=== PATIENT | male | born 1955 | race Caucasian/White ===

== ENCOUNTER 2017-12-10 19:11 | Emergency (ER) | payer MEDICARE, OTHER ==
[~2017-12-10] VITALS: Ht 172.7 cm; Wt 72.6 kg
[~2017-12-10 19:11] MED LIST: BUDE10.22; CHOL10002; DIVA250ER; DIVA500EC; FURO20; Inderal 20 mg T20 MG; LORA2; QUET100; QUET300
== END 2017-12-10 20:33 | disposition home or self-care (01) ==
LOC: ER 19:11
DX: S01.01XA Laceration without foreign body of scalp, initial encounter (principal); Y04.8XXA Assault by other bodily force, initial encounter; Z79.899 Other long term (current) drug therapy; F03.90 Unspecified dementia, unspecified severity, without behavioral disturbance, psychotic disturbance, mood disturbance, and anxiety
CPT/HCPCS: 12031; 99283

== ENCOUNTER → 2017-12-24 | Outpatient (CLI) | payer MEDICARE, OTHER ==
[2017-12-24 19:00] LABS: U Amphetamine Screen Not Detected; U Barbituate Screen Not Detected; U Benzodiazapine Screen DETECTED; U Buprenorphine Screen Not Detected; U Cannabinoids Screen Not Detected; U Cocaine Screen Not Detected; U Methadone Screen Not Detected; U Methamphetamine Screen Not Detected; U Opiates Screen Not Detected; U Oxycodone Screen Not Detected; U Phencyclidine Screen Not Detected; U Propoxyphene Screen Not Detected
== END ==
LOC: LAB SRC 13:41 → LAB SHORT 13:41
PROVIDERS: Nurse Practitioner Family
DX: Z51.81 Encounter for therapeutic drug level monitoring (principal); Z79.899 Other long term (current) drug therapy

== ENCOUNTER → 2019-04-04 | Outpatient (CLI) | payer MEDICARE, OTHER ==
[~2019-04-04] MED LIST changes: -CHOL10002; -DIVA250ER; -DIVA500EC; +DIVA500EC PO; +Fish Oil 10001000 MG PO; -Inderal 20 mg T20 MG; +Inderal 20 mg T20 MG PO; +LEVOFLOXACIN750 MG PO; -LORA2; +LORA2 PO; +OLAN5A PO; +ONE DAILY COMP1 EACH PO; -QUET100; +QUET100 PO; -QUET300; +QUET300 PO; +TRELEGY ELLIPT1 EACH INH; +VITAMIN D31000 UNIT PO; +Vsl#3 Capsule1 EACH PO
== END | disposition home or self-care (01) ==
LOC: LAB SRC 13:30 → LAB SHORT 13:30
DX: R73.9 Hyperglycemia, unspecified (principal)
CPT/HCPCS: 82043

== ENCOUNTER 2019-04-12 09:24 | Inpatient (IN) | payer MEDICARE, OTHER ==
[~2019-04-12] VITALS: Ht 177.8 cm; Wt 89.7 kg
[~2019-04-12 09:24] MED LIST changes: -DIVA500EC PO; -Fish Oil 10001000 MG PO; -Inderal 20 mg T20 MG PO; -LEVOFLOXACIN750 MG PO; -LORA2 PO; -OLAN5A PO; -ONE DAILY COMP1 EACH PO; -QUET100 PO; -QUET300 PO; -TRELEGY ELLIPT1 EACH INH; -VITAMIN D31000 UNIT PO; -Vsl#3 Capsule1 EACH PO
[2019-04-12 09:46] LABS: BASOPHILS ABSOLUTE AUTO 0.05 K/mm3 (0.00-0.23); BASOPHILS PERCENT AUTO 0 % (0-2); EOSINOPHILS ABSOLUTE AUTO 0.02 K/mm3 (0.00-0.68); EOSINOPHILS PERCENT AUTO 0 % (0-6); Hematocrit 40.4 % (37.0-53.0); Hemoglobin 13.7 g/dL (13.5-17.5); IMMATURE GRAN PERCENT AUTO 1 % (0-1); LYMPHOCYTES ABSOLUTE AUTO 2.04 K/mm3 (0.84-5.20); LYMPHOCYTES PERCENT AUTO 10 % (21-46); MONOCYTES ABSOLUTE AUTO 2.42 K/mm3 (0.16-1.47); MONOCYTES PERCENT AUTO 12 % (4-13); Mean Corpuscular HGB Conc 33.9 g/dL (31.5-36.5); Mean Corpuscular Volume 94 fL (80-100); Mean Platelet Volume 10.4 fL (9.1-12.4); NEUTROPHILS ABSOLUTE AUTO 16.05 K/mm3 (1.96-9.15); NEUTROPHILS PERCENT AUTO 77 % (41-73); Platelet Count 155 K/mm3 (150-400); RDW Coefficient Variation 12.7 % (11.7-14.2); RDW Standard Deviation 43.9 fL (35.1-46.3); Red Blood Cell Count 4.28 M/mm3 (4.30-5.90); White Blood Cell Count 20.78 K/mm3 (4.00-11.30)
[2019-04-12 10:00] LABS: Alanine Aminotransfer (ALT/SGP 25 U/L (12-78); Albumin, Blood 3.4 g/dL (3.4-5.0); Alk Phos 59 U/L (50-136); Anion Gap 12 mmol/L (6-16); Aspartate Aminotrans (AST/SGOT 25 U/L (12-37); Bilirubin, Total 1.2 mg/dL (0.1-1.0); Blood Urea Nitrogen 34 mg/dL (8-24); Bun/Creatinine Ratio 32.1 (12.0-20.0); CO2, Blood 25 mmol/L (21-32); Calcium, Blood 8.7 mg/dL (8.5-10.1); Chloride, Blood 103 mmol/L (98-108); Creatinine, Blood 1.06 mg/dL (0.60-1.20); Globulin, Blood 3.5 g/dL (2.2-4.0); Glomerular Filtration Rate >60 (60-); Glucose, Blood 131 mg/dL (70-99); Potassium, Blood 4.4 mmol/L (3.5-5.5); Sodium, Blood 140 mmol/L (136-145); Total Protein, Blood 6.9 g/dL (6.4-8.2)
[2019-04-12 11:01] LABS: Source, Urine Clean Catch
[2019-04-12 11:05] LABS: Bilirubin, Urine Neg (Neg); Blood, Urine 5+ (Neg); Glucose Qualitative, Urine Neg (Neg); Ketones, Urine 2+ (Neg); Leukocyte Esterase, Urine 3+ (Neg); Nitrite, Urine Neg (Neg); Protein, Urine 3+ (Neg); Urobilinogen, Urine 1+ (Normal)
[2019-04-12 11:15] LABS: Appearance, Urine Bloody (Clear); Color, Urine Red (P-Yellow)
[2019-04-12 11:17] LABS: Bacteria Rare /hpf; Red Blood Cells, Urine TNTC /hpf (0-2); Squamous Epithelial Cells Rare /hpf (Few)
[2019-04-12] MEDS ORDERED: DIVA500EC PO ×2 (11:56→11:59)
[2019-04-12] MEDS ORDERED: Inderal 20 mg T20 MG PO (11:57)
[2019-04-12] MEDS ORDERED: OLAN5A PO (11:57)
[2019-04-12] MEDS ORDERED: QUET300 PO (11:57)
[2019-04-12] MEDS ORDERED: VITAMIN D31000 UNIT PO (12:00)
[2019-04-12] MEDS ORDERED: LORA2 PO (12:11)
[2019-04-12] MEDS ORDERED: QUET100 PO (12:11)
[2019-04-12] MEDS ORDERED: Fish Oil 10001000 MG PO (12:12)
[2019-04-12] MEDS ORDERED: ONE DAILY COMP1 EACH PO (12:13)
--- NOTE | 2019-04-12 14:31 | NUR ---
PT ADMITTED PT ADMITTED AT 1350. PT IN STABLE CONDITION WITH VSS. ALARM SET & CALL LIGHT GIVEN TO PT. NEW IV PLACED. PT PULLED PREVIOUS IV. WILL CONTINUE TO MONITOR.
--- NOTE | 2019-04-12 17:49 | NUR ---
SHIFT SUMMARY NO CHANGES IN ASSESSMENT AT THIS TIME. VSS. PT CAREGIVER TO BRING IN ADVANCED DIRECTIVE TOMORROW. PT RESTING IN BED. CALL LIGHT IN REACH. BED ALARMED. WILL CONTINUE TO MONITOR UNIL TURNOVER IS COMPLETE.
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
[2019-04-13 05:38] LABS: BASOPHILS ABSOLUTE AUTO 0.04 K/mm3 (0.00-0.23); BASOPHILS PERCENT AUTO 0 % (0-2); EOSINOPHILS ABSOLUTE AUTO 0.04 K/mm3 (0.00-0.68); EOSINOPHILS PERCENT AUTO 0 % (0-6); Hematocrit 33.3 % (37.0-53.0); Hemoglobin 11.2 g/dL (13.5-17.5); IMMATURE GRAN PERCENT AUTO 1 % (0-1); LYMPHOCYTES ABSOLUTE AUTO 3.19 K/mm3 (0.84-5.20); LYMPHOCYTES PERCENT AUTO 18 % (21-46); MONOCYTES ABSOLUTE AUTO 2.13 K/mm3 (0.16-1.47); MONOCYTES PERCENT AUTO 12 % (4-13); Mean Corpuscular HGB 31.6 pg (26.0-34.0); Mean Corpuscular HGB Conc 33.6 g/dL (31.5-36.5); Mean Corpuscular Volume 94 fL (80-100); Mean Platelet Volume 10.7 fL (9.1-12.4); NEUTROPHILS ABSOLUTE AUTO 11.99 K/mm3 (1.96-9.15); NEUTROPHILS PERCENT AUTO 68 % (41-73); Platelet Count 121 K/mm3 (150-400); RDW Coefficient Variation 12.7 % (11.7-14.2); RDW Standard Deviation 43.8 fL (35.1-46.3); Red Blood Cell Count 3.54 M/mm3 (4.30-5.90); White Blood Cell Count 17.59 K/mm3 (4.00-11.30)
[2019-04-13 05:58] LABS: Albumin, Blood 2.6 g/dL (3.4-5.0); Anion Gap 7 mmol/L (6-16); Blood Urea Nitrogen 25 mg/dL (8-24); Bun/Creatinine Ratio 28.2 (12.0-20.0); CO2, Blood 27 mmol/L (21-32); CPK Creatine Kinase 113 U/L (39-308); Calcium, Blood 7.8 mg/dL (8.5-10.1); Chloride, Blood 108 mmol/L (98-108); Creatinine, Blood 0.89 mg/dL (0.60-1.20); Glomerular Filtration Rate >60 (60-); Glucose, Blood 94 mg/dL (70-99); Phosphorus, Blood 2.3 mg/dL (2.5-4.9); Potassium, Blood 3.8 mmol/L (3.5-5.5); Sodium, Blood 142 mmol/L (136-145)
--- NOTE | 2019-04-13 17:44 | NUR ---
SHIFT SUMMARY- PT A/O TO SELF AND [facility] ONLY. PT DENIES ANY COMPLAINTS T/O THE DAY. LS CLEAR, OCC NPC. PT INCONT OF URINE T/O THE DAY. PT DOES NOT FOLLOW DIRECTION WELL. SBA UP TO BATHROOM, CHRONIC TREMORS. NO OTHER ACUTE CHANGES THIS SHIFT. [facility] PROVIDER IN TO SEE PT TODAY AND UPDATE GIVEN.
--- NOTE | 2019-04-14 04:01 | NUR ---
63 year old MAle with severe sepsis UTI continues on IV levaquin and IVF at 75 ml HR. He continues cooperative with meds and is a high fall risk. Implusive with unsteady gait. Has IV fluids running. He is ambulated to bathroom several times will not sit on toilet or use urinal. Continues incontinent of large amts of clear yellow light urine. He talks nonsensically and indicates he see's men on the floor etc. From senior living in [place], plan to send back when WBC are lower. Afebrile VSS. Denies pain or acute distress.
[2019-04-14 05:48] LABS: BASOPHILS ABSOLUTE AUTO 0.05 K/mm3 (0.00-0.23); BASOPHILS PERCENT AUTO 1 % (0-2); EOSINOPHILS ABSOLUTE AUTO 0.11 K/mm3 (0.00-0.68); EOSINOPHILS PERCENT AUTO 1 % (0-6); Hematocrit 35.1 % (37.0-53.0); Hemoglobin 11.7 g/dL (13.5-17.5); IMMATURE GRAN ABSOLUTE AUTO 0.21 K/mm3 (0.00-0.10); IMMATURE GRAN PERCENT AUTO 2 % (0-1); LYMPHOCYTES ABSOLUTE AUTO 1.98 K/mm3 (0.84-5.20); LYMPHOCYTES PERCENT AUTO 22 % (21-46); MONOCYTES ABSOLUTE AUTO 0.96 K/mm3 (0.16-1.47); MONOCYTES PERCENT AUTO 11 % (4-13); Mean Corpuscular HGB 32.2 pg (26.0-34.0); Mean Corpuscular HGB Conc 33.3 g/dL (31.5-36.5); Mean Platelet Volume 10.9 fL (9.1-12.4); NEUTROPHILS ABSOLUTE AUTO 5.68 K/mm3 (1.96-9.15); NEUTROPHILS PERCENT AUTO 63 % (41-73); Platelet Count 112 K/mm3 (150-400); RDW Coefficient Variation 12.7 % (11.7-14.2); RDW Standard Deviation 45.4 fL (35.1-46.3); Red Blood Cell Count 3.63 M/mm3 (4.30-5.90); White Blood Cell Count 8.99 K/mm3 (4.00-11.30)
[2019-04-14 05:54] LABS: Mean Corpuscular Volume 97 fL (80-100)
[2019-04-14 06:05] LABS: Albumin, Blood 2.7 g/dL (3.4-5.0); Anion Gap 6 mmol/L (6-16); Blood Urea Nitrogen 22 mg/dL (8-24); Bun/Creatinine Ratio 26.8 (12.0-20.0); CO2, Blood 28 mmol/L (21-32); Calcium, Blood 8.1 mg/dL (8.5-10.1); Chloride, Blood 110 mmol/L (98-108); Creatinine, Blood 0.82 mg/dL (0.60-1.20); Glomerular Filtration Rate >60 (60-); Glucose, Blood 93 mg/dL (70-99); Phosphorus, Blood 2.8 mg/dL (2.5-4.9); Potassium, Blood 4.1 mmol/L (3.5-5.5); Sodium, Blood 144 mmol/L (136-145)
[2019-04-14] MEDS ORDERED: Vsl#3 Capsule1 EACH PO (11:19)
[2019-04-14] MEDS ORDERED: LEVOFLOXACIN750 MG PO (11:19)
--- NOTE | 2019-04-14 11:26 | NUR ---
SPOKE WITH PT CAREGIVER PADMINI REGARDING DISCHARGE. SHE WILL BE HERE TO [facility] PT AROUND [phone]. RX FAXED TO [facility]. F/U APPT MADE WITH PCP.
--- NOTE | 2019-04-14 14:24 | NUR ---
DISCHARGE INSTRUCTION REVIEWED WITH CAREGIVER/ [facility]EN[facility] VISUAL DESIGNER PADMINI. IV DC'D INTACT. PT DC'D AT 1425 ESCORTED OUT VIA W/C.
== END 2019-04-14 14:30 | disposition home or self-care (01) | DRG 690 ==
LOC: ER 09:24 → MEDS 09:25
PROVIDERS: Emergency Medicine; ADMIT Internal Medicine
DX: N39.0 Urinary tract infection, site not specified (principal); E87.2 Acidosis; F20.0 Paranoid schizophrenia; B96.20 Unspecified Escherichia coli [E. coli] as the cause of diseases classified elsewhere; E86.0 Dehydration; E83.39 Other disorders of phosphorus metabolism; J44.9 Chronic obstructive pulmonary disease, unspecified; W19.XXXA Unspecified fall, initial encounter; F17.210 Nicotine dependence, cigarettes, uncomplicated; Z88.0 Allergy status to penicillin; Z79.899 Other long term (current) drug therapy
CPT/HCPCS: 36415; 51701; 71046; 80053; 80069; 81001; 82550; 83605; 85025; 87040; 87077; 87086; 87186; 93005; 93010; 96361; 96365-59; 96366; 96366-59; 96367; 96372; 97162; 97165; 97530; 99285-25; G0378; J1650; J1956; J7030; J7060

== ENCOUNTER 2019-06-01 12:59 | Emergency (ER) | payer MEDICARE, OTHER ==
[~2019-06-01] VITALS: Ht 175.3 cm; Wt 86.2 kg
[~2019-06-01 12:59] MED LIST changes: +DIVA500EC PO; +Fish Oil 10001000 MG PO; +Inderal 20 mg T20 MG PO; +LEVOFLOXACIN750 MG PO; +LORA2 PO; +OLAN5A PO; +ONE DAILY COMP1 EACH PO; +QUET100 PO; +QUET300 PO; +VITAMIN D31000 UNIT PO; +Vsl#3 Capsule1 EACH PO
[2019-06-01 13:24] LABS: BASOPHILS ABSOLUTE AUTO 0.05 K/mm3 (0.00-0.23); BASOPHILS PERCENT AUTO 1 % (0-2); EOSINOPHILS ABSOLUTE AUTO 0.09 K/mm3 (0.00-0.68); EOSINOPHILS PERCENT AUTO 1 % (0-6); Hematocrit 41.7 % (37.0-53.0); IMMATURE GRAN ABSOLUTE AUTO 0.15 K/mm3 (0.00-0.10); IMMATURE GRAN PERCENT AUTO 2 % (0-1); LYMPHOCYTES ABSOLUTE AUTO 2.72 K/mm3 (0.84-5.20); LYMPHOCYTES PERCENT AUTO 34 % (21-46); MONOCYTES ABSOLUTE AUTO 0.87 K/mm3 (0.16-1.47); MONOCYTES PERCENT AUTO 11 % (4-13); Mean Corpuscular HGB 32.2 pg (26.0-34.0); Mean Corpuscular HGB Conc 33.6 g/dL (31.5-36.5); Mean Corpuscular Volume 96 fL (80-100); Mean Platelet Volume 10.3 fL (9.1-12.4); NEUTROPHILS ABSOLUTE AUTO 4.24 K/mm3 (1.96-9.15); NEUTROPHILS PERCENT AUTO 52 % (41-73); Platelet Count 289 K/mm3 (150-400); RDW Coefficient Variation 12.5 % (11.7-14.2); RDW Standard Deviation 44.4 fL (35.1-46.3); Red Blood Cell Count 4.35 M/mm3 (4.30-5.90); White Blood Cell Count 8.12 K/mm3 (4.00-11.30)
[2019-06-01] MEDS ORDERED: TRELEGY ELLIPT1 EACH INH (13:34)
[2019-06-01 13:42] LABS: Alanine Aminotransfer (ALT/SGP 25 U/L (12-78); Albumin, Blood 3.5 g/dL (3.4-5.0); Albumin/Globulin Ratio 1.1 (0.8-1.8); Alk Phos 87 U/L (50-136); Anion Gap 7 mmol/L (6-16); Aspartate Aminotrans (AST/SGOT 18 U/L (12-37); Bilirubin, Total 0.3 mg/dL (0.1-1.0); Blood Urea Nitrogen 26 mg/dL (8-24); CO2, Blood 31 mmol/L (21-32); Calcium, Blood 8.9 mg/dL (8.5-10.1); Chloride, Blood 104 mmol/L (98-108); Globulin, Blood 3.3 g/dL (2.2-4.0); Glomerular Filtration Rate >60 (60-); Glucose, Blood 146 mg/dL (70-99); Potassium, Blood 4.4 mmol/L (3.5-5.5); Sodium, Blood 142 mmol/L (136-145); Total Protein, Blood 6.8 g/dL (6.4-8.2)
[2019-06-01 14:50] LABS: Magnesium, Blood 1.8 mg/dL (1.6-2.4); Phosphorus, Blood 3.1 mg/dL (2.5-4.9)
[2019-06-01 16:00] LABS: Source, Urine Clean Catch
[2019-06-01 16:29] LABS: Bilirubin, Urine Neg (Neg); Blood, Urine 2+ (Neg); Glucose Qualitative, Urine Neg (Neg); Ketones, Urine Neg (Neg); Leukocyte Esterase, Urine 1+ (Neg); Nitrite, Urine Neg (Neg); Protein, Urine 2+ (Neg); Urobilinogen, Urine NORM (Normal)
[2019-06-01 16:48] LABS: Appearance, Urine Clear (Clear); Color, Urine Yellow (P-Yellow)
[2019-06-01 16:57] LABS: Bacteria Mod /hpf; Red Blood Cells, Urine Rare /hpf (0-2); Squamous Epithelial Cells Rare /hpf (Few); White Blood Cells, Urine 0-2 /hpf (0-5)
== END 2019-06-01 17:06 | disposition home or self-care (01) ==
LOC: ER 12:59
PROVIDERS: Emergency Medicine
DX: S00.81XA Abrasion of other part of head, initial encounter (principal); F20.9 Schizophrenia, unspecified; J44.9 Chronic obstructive pulmonary disease, unspecified; Z88.0 Allergy status to penicillin; Z79.899 Other long term (current) drug therapy; W19.XXXA Unspecified fall, initial encounter
CPT/HCPCS: 36415; 70450; 80053; 80164; 81001; 83735; 84100; 85025; 87086; 90471; 90714; 93005; 93010; 99285-25

== ENCOUNTER 2019-11-01 10:19 | Inpatient (IN) | payer OTHER ==
[~2019-11-01] VITALS: Ht 175.3 cm; Wt 93.2 kg
[~2019-11-01 10:19] MED LIST changes: +TRELEGY ELLIPT1 EACH INH
[2019-11-01 11:10] LABS: BASOPHILS ABSOLUTE AUTO 0.09 K/mm3 (0.00-0.23); BASOPHILS PERCENT AUTO 1 % (0-2); EOSINOPHILS ABSOLUTE AUTO 0.02 K/mm3 (0.00-0.68); EOSINOPHILS PERCENT AUTO 0 % (0-6); Hematocrit 37.4 % (37.0-53.0); Hemoglobin 12.3 g/dL (13.5-17.5); IMMATURE GRAN ABSOLUTE AUTO 0.19 K/mm3 (0.00-0.10); IMMATURE GRAN PERCENT AUTO 2 % (0-1); LYMPHOCYTES ABSOLUTE AUTO 1.59 K/mm3 (0.84-5.20); LYMPHOCYTES PERCENT AUTO 19 % (21-46); MONOCYTES ABSOLUTE AUTO 2.26 K/mm3 (0.16-1.47); MONOCYTES PERCENT AUTO 27 % (4-13); Mean Corpuscular HGB 31.9 pg (26.0-34.0); Mean Corpuscular HGB Conc 32.9 g/dL (31.5-36.5); Mean Corpuscular Volume 97 fL (80-100); Mean Platelet Volume 11.1 fL (9.1-12.4); NEUTROPHILS ABSOLUTE AUTO 4.32 K/mm3 (1.96-9.15); NEUTROPHILS PERCENT AUTO 51 % (41-73); NRBC ABSOLUTE 0.02 K/mm3 (0.00-0.02); NRBC Auto 0.2 /100 WBC (0.0-0.2); Platelet Count 168 K/mm3 (150-400); RDW Coefficient Variation 12.8 % (11.7-14.2); RDW Standard Deviation 45.6 fL (35.1-46.3); Red Blood Cell Count 3.86 M/mm3 (4.30-5.90); White Blood Cell Count 8.47 K/mm3 (4.00-11.30)
[2019-11-01 11:27] LABS: Alanine Aminotransfer (ALT/SGP 83 U/L (12-78); Albumin, Blood 3.2 g/dL (3.4-5.0); Albumin/Globulin Ratio 0.8 (0.8-1.8); Alk Phos 95 U/L (50-136); Anion Gap 4 mmol/L (6-16); Aspartate Aminotrans (AST/SGOT 62 U/L (12-37); Bilirubin, Total 0.7 mg/dL (0.1-1.0); Blood Urea Nitrogen 25 mg/dL (8-24); Bun/Creatinine Ratio 30.7 (12.0-20.0); CO2, Blood 31 mmol/L (21-32); Calcium, Blood 9.4 mg/dL (8.5-10.1); Chloride, Blood 104 mmol/L (98-108); Creatinine, Blood 0.81 mg/dL (0.60-1.20); Glomerular Filtration Rate >60 (60-); Glucose, Blood 145 mg/dL (70-99); Potassium, Blood 4.3 mmol/L (3.5-5.5); Sodium, Blood 139 mmol/L (136-145); Total Protein, Blood 7.2 g/dL (6.4-8.2); Troponin I <0.015 ng/mL (0.000-0.040)
--- NOTE | 2019-11-01 16:27 | NUR ---
[facility] PT LIVES AT [facility] [phone] CALLED AND SPOKE WITH PADMINI, [facility]
[2019-11-01 17:12] LABS: Valproic Acid 94.6 ug/mL (50.0-100.0)
--- NOTE | 2019-11-01 17:35 | NUR ---
SUMMARY PT ADMITTED FROM THE ER FOR COPD EXAC, PT ALERT AND ORIENTED TO SELF AND PLACE, FOLLOWS COMMANDS, IS COOPERATIVE AND REDIRECTABLE, PT ABLE TO STAND AND TRANSFER SELF TO THE BED FROM THE GURNEY, PT ANSWERS MOST SIMPLE QUESTIONS APPROPRIATELY, IS A POOR HISTORIAN, SPOKE WITH PADMINI BROWN THE STORE LEAD TO GET HEALTH HISTORY AND PRIOR ADMISSION NOTES, PT ON 4L NC, UP TO 6L NC AND BACK TO 4L NC, PT VERY WHEEZY WITH ANY ACTIVITY, PT ABLE TO TAKE PILLS WHOLE AND FEED SELF ICE CREAM, PT NOW VERY SLEEPY AND DIFFICULT TO AROUSE, NOTIFIED RESP THERAPY OF THE NEED FOR CONT PULSE OX AND BIPAP, WILL NOTIFY MD AND REAL ESTATE MARKETING COORDINATOR
--- NOTE | 2019-11-01 17:53 | NUR ---
SPOKE WITH PROVIDER CONSUELO, ORDER FOR ABG NOW
[2019-11-01 17:54] LABS: Adenovirus Not Detected (NOT DETECT); Bordetella pertussis Not Detected (NOT DETECT); Chlamydophila pneumoniae Not Detected (NOT DETECT); Coronavirus 229E Not Detected (NOT DETECT); Coronavirus HKU1 Not Detected (NOT DETECT); Coronavirus NL63 Not Detected (NOT DETECT); Coronavirus OC43 Not Detected (NOT DETECT); Human Metapneumovirus Not Detected (NOT DETECT); Human Rhinovirus/Enterovirus Not Detected (NOT DETECT); Influenza A/2009-H1 Not Detected (NOT DETECT); Influenza A/H1 Not Detected (NOT DETECT); Influenza A/H3 Not Detected (NOT DETECT); Influenza B Not Detected (NOT DETECT); Mycoplasma pneumoniae Not Detected (NOT DETECT); Parainfluenza Virus 1 Not Detected (NOT DETECT); Parainfluenza Virus 2 Not Detected (NOT DETECT); Parainfluenza Virus 3 Not Detected (NOT DETECT); Parainfluenza Virus 4 Not Detected (NOT DETECT); Respiratory Syncytial Virus Not Detected (NOT DETECT)
--- NOTE | 2019-11-01 18:10 | NUR ---
PT NOW ON [employer], AGB BEING RUN
[2019-11-01 18:15] LABS: PCO2 Arterial 55.9 mmHg (35-45); PO2 Arterial 59 mmHg (80-100)
--- NOTE | 2019-11-02 04:42 | NUR ---
@0400- BLADDER SCAN DONE DUE TO PT. W/O VOIDING. >900ML. NOTIFIED DR. SHAW, RECEIVED ORDER FOR STRAIGHT CATH AND BLADDER SCAN IN 6HRS. STRAIGHT CATH PERFORMED. PT. HAD OUTPUT OF 900ML, TOLERATED WELL. WILL CONT TO MONITOR.
[2019-11-02 05:33] LABS: Hematocrit 33.5 % (37.0-53.0); Hemoglobin 10.8 g/dL (13.5-17.5); Mean Corpuscular HGB Conc 32.2 g/dL (31.5-36.5); Mean Corpuscular Volume 99 fL (80-100); Mean Platelet Volume 11.1 fL (9.1-12.4); Platelet Count 166 K/mm3 (150-400); RDW Coefficient Variation 12.7 % (11.7-14.2); RDW Standard Deviation 46.8 fL (35.1-46.3); Red Blood Cell Count 3.38 M/mm3 (4.30-5.90); White Blood Cell Count 5.99 K/mm3 (4.00-11.30)
--- NOTE | 2019-11-02 05:37 | NUR ---
SHIFT SUMMARY- PT. CONFUSED AND SLEEPY THE START OF THE SHIFT. UNABLE TO FOLLOW DIRECTIONS AND TAKE HIS MEDS. REMAINED CONFUSED THE REST OF THE NIGHT AND BECAME AGITATED. MEDICATED PER EMAR WITH MINIMAL EFFECT. BLADDER SCAN DONE DUE TO ABSENCE OF URINE DURING THE NIGHT. NOTED >900ML. STRAIGHT CATH PER ORDER, OUTPUT OF 900ML. ORDER FOR REPEAT BLADDER SCAN TO BE DONE IN THE LATE AM. PT. ON 4L NC. REFUSING TO KEEP BIPAP ON. CONT BIOX IN PLACE. PT. APPEARS TO BE RESTING COMFORTABLY IN BED, NO APPARENT DISTRESS NOTED. CALL LIGHT WITHIN REACH, SIDE RAILS UP X2, AND BED ALARM. WILL CONT TO MONITOR.
[2019-11-02 05:55] LABS: Alanine Aminotransfer (ALT/SGP 61 U/L (12-78); Albumin, Blood 2.6 g/dL (3.4-5.0); Albumin/Globulin Ratio 0.7 (0.8-1.8); Alk Phos 70 U/L (50-136); Anion Gap 3 mmol/L (6-16); Aspartate Aminotrans (AST/SGOT 32 U/L (12-37); Bilirubin, Total 0.4 mg/dL (0.1-1.0); Blood Urea Nitrogen 28 mg/dL (8-24); CO2, Blood 32 mmol/L (21-32); Calcium, Blood 8.9 mg/dL (8.5-10.1); Chloride, Blood 106 mmol/L (98-108); Creatinine, Blood 0.82 mg/dL (0.60-1.20); Globulin, Blood 3.7 g/dL (2.2-4.0); Glomerular Filtration Rate >60 (60-); Glucose, Blood 170 mg/dL (70-99); Potassium, Blood 4.7 mmol/L (3.5-5.5); Sodium, Blood 141 mmol/L (136-145); Total Protein, Blood 6.3 g/dL (6.4-8.2)
[2019-11-02 06:01] LABS: BAND PERCENT MAN 11 % (0-8); BASOPHILS PERCENT MAN 0 % (0-2); EOSINOPHILS PERCENT MAN 0 % (0-6); LYMPHOCYTES ABSOLUTE MAN 1.25 K/mm3 (0.84-5.20); LYMPHOCYTES PERCENT MAN 21 % (21-46); METAMYELOCYTE ABSOLUTE MAN 0.05 K/mm3 (0.00-0.00); METAMYELOCYTE PERCENT MAN 1 % (0-0); MONOCYTES ABSOLUTE MAN 0.95 K/mm3 (0.16-1.47); MONOCYTES PERCENT MAN 16 % (4-13); MYELOCYTE ABSOLUTE MAN 0.17 K/mm3 (0.00-0.00); MYELOCYTE PERCENT MAN 3 % (0-0); NEUTROPHILS ABSOLUTE MAN 3.53 K/mm3 (1.96-9.15); SEG NEUTROPHILS PERCENT MAN 48 % (41-73); TOTAL CELLS COUNTED 100
[2019-11-02 14:55] LABS: U Amphetamine Screen Not Detected; U Barbituate Screen Not Detected; U Benzodiazapine Screen DETECTED; U Buprenorphine Screen Not Detected; U Cannabinoids Screen Not Detected; U Cocaine Screen Not Detected; U Methadone Screen Not Detected; U Methamphetamine Screen Not Detected; U Opiates Screen Not Detected; U Oxycodone Screen Not Detected; U Phencyclidine Screen Not Detected; U Propoxyphene Screen Not Detected
--- NOTE | 2019-11-02 17:31 | NUR ---
SUMMARY PT AWAKE IN BED WATCHING TV, PT HAS BEEN PLEASANTLY CONFUSED T/O THE DAY, OFTEN HALLUCINATING THAT PEOPLE ARE IN THE ROOM, PT AGITATED LATE AFTERNOON AND REQUIRED ZYPREXA AND TO BE STRAIGHT CATH'D, PT ATTEMPTED TO USE THE URINAL IN THE BED AND STANDING AT THE BEDSIDE WITH NO RESULTS, BLADDER SCAN SHOWED GREATER THAN 500 CC IN HIS BLADDER, PT LISANDRO WELL, VSS, PT REMAINS ON 4L NC, STILL WHEEZY, WILL CONT TO MONITOR
--- NOTE | 2019-11-03 01:30 | NUR ---
THIS NURSE BECAME AGGITATED AND COMBATIVE WHEN SHE TOLD THE PATIENT THAT SHE WOULD LIKE HIM TO WEAR HIS CPAP, AND SHOWED HIM THE MASK, FOR BED SINCE HE KEPT TAKING HIS NASAL CANULA OFF AND WAS DESATING. THE PATIENT WAS ATTEMPTING TO GRAB AND HIT STAFF. HE RIPPED APART HIS IV TUBING, DISCONNECTED HIMSELF FROM HIS CONTINUOUS BIOX MACHINE, AND RIPPED HIS TELE OFF. HE WAS STANDING UP AND ATTEMPTING TO WALK ACROSS THE ROOM WHILE POINTING HIS FINGERS AT THIS NURSE AND THE RAILROAD POLICE OFFICER SAYING "BANG, BANG". 5 MG IM ZYPREXA GIVEN IN THE LEFT THIGH WHILE TWO OTHERS WERE HOLDING THE PATIENT DOWN. WILL CONTINUE TO MONITOR.
--- NOTE | 2019-11-03 02:24 | NUR ---
PHYSICIAN COMMUNICATION NOTIFIED THE COSMETIC MAKER PHYSICIAN, DR THAKKAR, THAT THE PATIENT HAS BECOME COMBATIVE AND IS PULLING AT LINES AND THREATENING STAFF. THIS NURSE ASKED IF SHE COULD PLACE THE PATIENT IN A DELILAH VEST AND SOFT RESTRAINTS. DR THAKKAR ORDERED THE DELILAH AND SOFT WRIST RESTRAINTS.
--- NOTE | 2019-11-03 02:53 | NUR ---
0215 PT UP PACING IN ROOM AND UNABLE TO FOLLOW REDIRECTION; PT HAS PULLED OF OXYGEN/TELEMETRY AND IV. SECURITY AT SIDE WITH NURSING STAFF X 4; PT PLACED INTO DELILAH VEST AND BILATERAL UPPER ARM SOFT WRIST RESTRAINTS; IV RESTARTED LFA, TELEMETRY REAPPLIED WHICH REFLECTS NSR WITH HEART RATE 80; O2 AT 2L/M PER NASAL CANNULA APPLIED WITH SATS 97; PT WAS GIVEN ATIVAN [address]MG [address] THAKKAR AT BEDSIDE. 0250 PT IS RESTING MORE COMFORTABLE AT THIS MOMENT; ALERT TO PERSON ONLY.
[2019-11-03 05:20] LABS: Hematocrit 34.7 % (37.0-53.0); Hemoglobin 11.1 g/dL (13.5-17.5); Mean Corpuscular HGB 31.7 pg (26.0-34.0); Mean Corpuscular Volume 99 fL (80-100); Mean Platelet Volume 10.8 fL (9.1-12.4); NRBC ABSOLUTE 0.02 K/mm3 (0.00-0.02); NRBC Auto 0.2 /100 WBC (0.0-0.2); Platelet Count 203 K/mm3 (150-400); RDW Coefficient Variation 12.9 % (11.7-14.2); RDW Standard Deviation 46.9 fL (35.1-46.3); White Blood Cell Count 10.29 K/mm3 (4.00-11.30)
[2019-11-03 05:38] LABS: Anion Gap 2 mmol/L (6-16); Blood Urea Nitrogen 35 mg/dL (8-24); Bun/Creatinine Ratio 40.8 (12.0-20.0); CO2, Blood 31 mmol/L (21-32); Calcium, Blood 8.6 mg/dL (8.5-10.1); Chloride, Blood 108 mmol/L (98-108); Creatinine, Blood 0.86 mg/dL (0.60-1.20); Glomerular Filtration Rate >60 (60-); Glucose, Blood 180 mg/dL (70-99); Potassium, Blood 5.1 mmol/L (3.5-5.5); Sodium, Blood 141 mmol/L (136-145)
--- NOTE | 2019-11-03 05:46 | NUR ---
SHIFT SUMMARY PATIENT ALERT AND ORIENTED X 1. IS CURRENTLY IN SOFT WRIST RESTRAINTS AND A DELILAH VEST DUE TO HIM PULLING AT LINES, COMBATIVE BEHAVIOR, AND THREATENING STAFF. PATIENT MEDICATED FOR AGGITATION PER EMAR. PATIENT IS ON 4 LITERS O2 VIA NASAL CANULA. IV PATENT AND INFUSING WITH NORMAL SALINE AT 100 ML/HR. BED IN LOWEST POSITION WITH WHEELS LOCKED AND ALARM ON. CALL LIGHT WITHIN REACH. REPORT GIVEN TO ONCOMING RN.
[2019-11-03 06:05] LABS: BAND PERCENT MAN 10 % (0-8); BASOPHILS PERCENT MAN 0 % (0-2); EOSINOPHILS PERCENT MAN 0 % (0-6); LYMPHOCYTES ABSOLUTE MAN 2.57 K/mm3 (0.84-5.20); LYMPHOCYTES PERCENT MAN 25 % (21-46); METAMYELOCYTE PERCENT MAN 1 % (0-0); MONOCYTES ABSOLUTE MAN 0.72 K/mm3 (0.16-1.47); MONOCYTES PERCENT MAN 7 % (4-13); MYELOCYTE ABSOLUTE MAN 0.41 K/mm3 (0.00-0.00); MYELOCYTE PERCENT MAN 4 % (0-0); NEUTROPHILS ABSOLUTE MAN 6.48 K/mm3 (1.96-9.15); SEG NEUTROPHILS PERCENT MAN 53 % (41-73); TOTAL CELLS COUNTED 100
--- NOTE | 2019-11-03 07:53 | NUR ---
REPORT received from [facility] nurse, alert, confused, restraints in place, good circulation beyond, talking fligts of attention, some words unclear, happy now carrying on conversation with self based on what is on tv, complete bed change and placed depends, took off pose will assess as day progresses, kept arm restraints to protect access, o2 94% on 3L via nc, resting compfortably, with head raised slightly, Took medication with no complications, will continue to monitor and treat as appropriate
--- NOTE | 2019-11-03 11:50 | NUR ---
While sitting up for lunch noted wheeze upon inhalation, started prior first bite, will continue to monitor and treat
[2019-11-03] MEDS ORDERED: ACET325 PO (13:13)
[2019-11-03] MEDS ORDERED: ALBU90OI INH (13:14)
[2019-11-03] MEDS ORDERED: AZIT500 PO (13:14)
[2019-11-03] MEDS ORDERED: BENZ100A PO (13:14)
[2019-11-03] MEDS ORDERED: Florastor250 MG PO (13:15)
[2019-11-03] MEDS ORDERED: GUAI600T33 PO (13:15)
[2019-11-03] MEDS ORDERED: ONDA4ODT MM (13:15)
[2019-11-03] MEDS ORDERED: PRED20 PO (13:15)
--- NOTE | 2019-11-03 18:33 | NUR ---
alert sitting in bed watching tv, hard to ascertain orintation due to speech impedement, medicated as prescribed, restrains on arms due to impulsiveness and anger, threatens staff and pulls lines, easily redirected does not try to get out of bed, visited by caregiver today who stated she was ready for him to come home, call light in reach, ns infusing with no s/sx of infection at site, 1L via nc, destats if removed even if just sitting watching tv, will continue to monitor and treat until share bsr with noc staff, no acute changes noted in condition
[2019-11-04 05:55] LABS: Hematocrit 34.2 % (37.0-53.0); Hemoglobin 10.9 g/dL (13.5-17.5); Mean Corpuscular HGB 32.1 pg (26.0-34.0); Mean Corpuscular HGB Conc 31.9 g/dL (31.5-36.5); Mean Corpuscular Volume 101 fL (80-100); Mean Platelet Volume 11.1 fL (9.1-12.4); NRBC ABSOLUTE 0.02 K/mm3 (0.00-0.02); NRBC Auto 0.2 /100 WBC (0.0-0.2); Platelet Count 222 K/mm3 (150-400); RDW Coefficient Variation 13.2 % (11.7-14.2); RDW Standard Deviation 49.1 fL (35.1-46.3); White Blood Cell Count 12.83 K/mm3 (4.00-11.30)
--- NOTE | 2019-11-04 06:26 | NUR ---
SHIFT SUMMARY PATIENT REMAINS IN WRIST RESTRAINTS. GOT UP TO THE BATHROOM TWICE WITH THE ASSISTANCE OF THIS RN AND THE HEEL PAINTER. THE SECOND TIME HE BECAME AGGITATED AND RECEIVED A 1MG DOSE OF ATIVAN IV. HE FELL ASLEEP AFTER. IV PATENT AND FLUSHED. BED IN LOWEST POSITION WITH WHEELS LOCKED. CALL LIGHT WITHIN REACH. REPORT GIVEN TO ONCOMING RN.
[2019-11-04 06:32] LABS: BAND PERCENT MAN 9 % (0-8); BASOPHILS PERCENT MAN 0 % (0-2); EOSINOPHILS PERCENT MAN 0 % (0-6); LYMPHOCYTES ABSOLUTE MAN 2.43 K/mm3 (0.84-5.20); LYMPHOCYTES PERCENT MAN 19 % (21-46); METAMYELOCYTE ABSOLUTE MAN 0.89 K/mm3 (0.00-0.00); METAMYELOCYTE PERCENT MAN 7 % (0-0); MONOCYTES ABSOLUTE MAN 1.28 K/mm3 (0.16-1.47); MONOCYTES PERCENT MAN 10 % (4-13); MYELOCYTE ABSOLUTE MAN 0.51 K/mm3 (0.00-0.00); MYELOCYTE PERCENT MAN 4 % (0-0); NEUTROPHILS ABSOLUTE MAN 7.69 K/mm3 (1.96-9.15); SEG NEUTROPHILS PERCENT MAN 51 % (41-73); TOTAL CELLS COUNTED 100
--- NOTE | 2019-11-04 08:00 | NUR ---
report received from [facility] nurse, no acute changes from prior day shift, still asphasia, restraints, threatening, compliant, slow to respond, lives in own [place] and needs to be called back, medicated as prescribed, head elevated to desired level, call light in reach, o2 started at 1 up to 4 when choughing, breathing treatment from rt, will continue to monitor and treat as appropriate
--- NOTE | 2019-11-04 18:01 | NUR ---
Reviewed medications, discharge insructions, treatments, stay, and what to do if something went wrong, went over how to use 02, pushed pt wc to caregiver's van and assisted him to get in
== END 2019-11-04 17:05 | disposition home health service (06) | DRG 189 ==
LOC: ER 10:19 → MEDS 15:09 → ENPENDDIS 11-04 10:00 → MEDS 11-04 17:05
PROVIDERS: Family Medicine; Nurse Practitioner Acute Care; Physician Assistant; ADMIT Internal Medicine
DX: J96.21 Acute and chronic respiratory failure with hypoxia (principal); J44.1 Chronic obstructive pulmonary disease with (acute) exacerbation; F03.91 Unspecified dementia, unspecified severity, with behavioral disturbance; F03.90 Unspecified dementia, unspecified severity, without behavioral disturbance, psychotic disturbance, mood disturbance, and anxiety; F20.9 Schizophrenia, unspecified; F17.210 Nicotine dependence, cigarettes, uncomplicated; Z88.0 Allergy status to penicillin; Z78.1 Physical restraint status
CPT/HCPCS: 0099U; 36415; 36600; 71045; 80048; 80053; 80164; 82803; 83690; 83880; 84145; 84484; 85025; 90686; 93005; 93010; 94640; 94644; 94645; 94660; 94762; J0456; J1650; J2060; J2930; J7030; J7050; J7120